=== PATIENT | male | born 2000 | race Caucasian/White ===

== ENCOUNTER 2023-10-17 04:08 | Emergency (ER) | payer SELFPAY ==
[2023-10-17 04:09] VITALS: BP 122/75; PULSE 83; RESP 16; O2SAT 99; BMI 24.3
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
[2023-10-17 06:17] VITALS: BP 122/75; PULSE 83; RESP 16; O2SAT 99
== END 2023-10-17 06:29 | disposition home or self-care (01) ==
PROVIDERS: Emergency Provider Emergency Medicine
DX: S13.4XXA Sprain of ligaments of cervical spine, initial encounter (principal); S80.212A Abrasion, left knee, initial encounter; V69.9XXA Occupant (driver) (passenger) of heavy transport vehicle injured in unspecified traffic accident, initial encounter
CPT/HCPCS: 70450; 71045; 72125; 99284